=== PATIENT | female | born 1980 | race Caucasian/White ===

== ENCOUNTER 2018-04-11 12:08 | Day surgery (SDC) | payer BC ==
[~2018-04-11] VITALS: Ht 162.6 cm; Wt 70.4 kg
[2018-04-11 12:54] VITALS: BP 115/69
[2018-04-11] MEDS ORDERED: MIDAZOLAM 1 MG/ML, 2ML ONE (14:48)
[2018-04-11] MEDS ORDERED: FENTANYL PF 100 MCG/2ML ONE ×2 (14:48→15:57)
[2018-04-11] MEDS ORDERED: OXYTOCIN 10 UNITS/ML, 1ML ONE (14:49)
[2018-04-11] MEDS ORDERED: METHYLERGONOVINE 0.2 MG/ML IM ONE (14:49)
[2018-04-11] MEDS ORDERED: MISOPROSTOL 200 MCG TABLET ONE (14:49)
[2018-04-11] MEDS ORDERED: DIAZEPAM 5 MG TABLET PO ONE (15:00)
[2018-04-11] MEDS ORDERED: ACETAMINOPHEN 500 MG TABLET PO ONE (15:00)
[2018-04-11] MEDS ORDERED: PROPOFOL 10 MG/ML, 20ML ONE (15:03)
[2018-04-11] MEDS ORDERED: DEXAMETHASONE 4 MG/ML, 1ML ONE ×2 (15:10)
[2018-04-11] MEDS ORDERED: ONDANSETRON 2MG/ML, 2ML ONE (15:10)
[2018-04-11] MEDS ORDERED: CEFAZOLIN 1,000 MG ONE ×2 (15:10)
[2018-04-11] MEDS ORDERED: KETOROLAC 30 MG/1 ML ONE ×2 (15:22)
[2018-04-11] MEDS ORDERED: OXYcodone 5 MG/5 ML ORAL.SOL UDC ONE (15:56)
[2018-04-11] MEDS: FENTANYL PF 100 MCG/2ML IV PRN ×2 (15:58→16:10)
[2018-04-11] MEDS ORDERED: HALOPERIDOL 5 MG/ML IV PRN (16:00)
[2018-04-11] MEDS ORDERED: DIAZEPAM 5 MG/ML, 2ML IVPush PRN (16:00)
[2018-04-11] MEDS ORDERED: HYDROmorphone 1 MG/ML, 1ML IV PRN (16:00)
[2018-04-11] MEDS ORDERED: MEPERIDINE/PF 25MG/0.5ML IVPush PRN (16:00)
[2018-04-11] MEDS ORDERED: PROMETHAZINE 25 MG/ML, 1ML IV PRN (16:00)
[2018-04-11] MEDS ORDERED: EPHEDRINE 50 MG/ML, 1ML IVPush PRN (16:00)
[2018-04-11] MEDS ORDERED: LABETALOL 5MG/ML, 20ML IV PRN (16:00)
[2018-04-11] MEDS ORDERED: ONDANSETRON ODT 8 MG PO PRN (16:00)
[2018-04-11] MEDS ORDERED: ALBUTEROL SULFATE 2.5 MG/3 ML NPPB PRN (16:00)
[2018-04-11] MEDS ORDERED: ONDANSETRON 2MG/ML, 2ML IV PRN (16:00)
[2018-04-11] MEDS ORDERED: OXYcodone 5 MG/5 ML ORAL.SOL UDC PO PRN (16:00)
[2018-04-11] MEDS ORDERED: PROMETHAZINE 12.5 MG SUPP PR PRN (16:00)
[2018-04-11] MEDS ORDERED: MORPHINE SULFATE 4 MG/ML, 1ML IVPush PRN (16:00)
[2018-04-11] MEDS ORDERED: MIDAZOLAM 1 MG/ML, 2ML IV PRN (16:00)
[2018-04-11] MEDS ORDERED: hydrALAzine 20 MG/ML, 1ML IV PRN (16:00)
== END 2018-04-11 17:30 | disposition home or self-care (01) ==
LOC: OUT 12:08
PROVIDERS: ATTEND Specialist
DX: O02.0 Blighted ovum and nonhydatidiform mole (principal); Z87.891 Personal history of nicotine dependence; Z79.899 Other long term (current) drug therapy
CPT/HCPCS: 36415; 59820; 86850; 86900; 88305; J1100; J1885; J2250; J2405; J2704; J3010; J0690; J2210; J2590

== ENCOUNTER → 2018-11-13 | Outpatient (CLI) | payer BC | END | disposition home or self-care (01) | LOC: LAB 08:55 | PROVIDERS: ATTEND Specialist | DX: N92.5 Other specified irregular menstruation (principal); N92.6 Irregular menstruation, unspecified | CPT/HCPCS: 36415; 82670; 84144 ==

== ENCOUNTER → 2018-11-18 | Outpatient (CLI) | payer BC | END | disposition home or self-care (01) | LOC: LAB 09:30 | PROVIDERS: ATTEND Specialist | DX: N92.5 Other specified irregular menstruation (principal) | CPT/HCPCS: 36415; 82670; 84144 ==

== ENCOUNTER 2018-12-16 14:40 | Outpatient (CLI) | payer BC | END 2018-12-16 23:59 | disposition home or self-care (01) | LOC: CFH 14:40 → EDSTATUS 15:00 → CFH 23:59 | PROVIDERS: ATTEND Specialist | DX: O03.9 Complete or unspecified spontaneous abortion without complication (principal) | CPT/HCPCS: 58340; 76831 ==

== ENCOUNTER 2019-04-20 13:26 | Emergency (ER) | payer BC ==
[~2019-04-20] VITALS: Ht 162.6 cm; Wt 72.8 kg
[~2019-04-20 13:26] MED LIST: CETI10CA PO; CHOL100011 PO; CYAN250013 PO; KRIL500C PO; OMEG1CAP6 PO; PNV11TAB PO
--- NOTE | 2019-04-20 14:25 | NUR ---
APPROX 4 WEEKS AND VAGINAL BLEEDING WITH CRAMPING. LAB DRAWN AND AWAITING ULTRASOUND
[2019-04-20 14:26] LABS: BASOPHILS # (AUTO) 0.03 x10^3/uL (0-0.1); BASOPHILS % (AUTO) 0 % (0-1); EOSINOPHILS # (AUTO) 0.13 x10^3/uL (0-0.4); EOSINOPHILS % (AUTO) 1 % (1-7); LYMPHOCYTES # (AUTO) 3.09 x10^3/uL (1-3.4); LYMPHOCYTES % (AUTO) 24 % (22-44); MD NO; MEAN CORPUSCULAR HEMOGLOBIN 28.7 pg (27.0-34.8); MEAN CORPUSCULAR HGB CONC 32.6 g/dL (32.4-35.8); MEAN PLATELET VOLUME 8.1 fL (7.4-10.4); MONOCYTES # (AUTO) 0.95 x10^3/uL (0.2-0.8); MONOCYTES % (AUTO) 8 % (2-9); NEUTROPHILS # (AUTO) 8.52 x10^3/uL (1.8-6.8); NEUTROPHILS % (AUTO) 67 % (42-75); PLATELET COUNT 262 x10^3/uL (130-400); RED BLOOD COUNT 4.56 x10^6/uL (3.82-5.3); RED CELL DISTRIBUTION WIDTH 13.3 % (9.6-15.2)
--- NOTE | 2019-04-20 16:10 | NUR ---
RESTING WHILE AWAITING DISPO
--- NOTE | 2019-04-20 17:25 | NUR ---
DR GUPTA SPOKE WITH DR ALVAREZ EXECUTOR OF ESTATE FOR DR BARREAR.
[2019-04-20 17:29] VITALS: BP 123/77
--- NOTE | 2019-04-20 18:00 | NUR ---
PT STATES SHE CONTINUES TO EXPERIENCE VAGINAL BLEEDING WHEN SHE COUGHS OR MOVES.
== END 2019-04-20 18:51 | disposition home or self-care (01) ==
LOC: ED 16:24
DX: O20.0 Threatened abortion (principal); Z3A.01 Less than 8 weeks gestation of pregnancy
CPT/HCPCS: 36415; 76830; 84702; 85025; 86901; 99284